=== PATIENT | male | born 1955 | race African-American/Black ===

== ENCOUNTER 2020-02-13 23:17 | Inpatient (IN) | payer MEDICAID ==
[~2020-02-13] VITALS: Ht 180.3 cm; Wt 106.6 kg
[2020-02-14 00:59] LABS: BASOPHILS % 0.9 % (0.0-2.0); EOSINOPHILS % 0.7 % (0.0-5.0); HEMATOCRIT. 25.4 % (42.0-52.0); HEMOGLOBIN. 8.6 g/dL (14.0-18.0); MEAN CORPUSCULAR HEMOGLOBIN 23.1 pg (28.0-32.0); MEAN CORPUSCULAR VOLUME 68.5 fL (80.0-94.0); MEAN PLATELET VOLUME 7.5 fl (7.4-10.4); MONOCYTES % 9.8 % (2.0-8.0); NEUTROPHILS % 79.6 % (40.0-76.0); PLATELET 320 x1000/uL (130-400); RED CELL DISTRIBUTION WIDTH 15.2 % (11.6-14.6)
[2020-02-14 01:07] LABS: PROTHROMBIN TIME 10.7 sec (9.6-11.0)
[2020-02-14 01:17] LABS: CHLORIDE 105 mEq/L (98-107)
[2020-02-14] MEDS ORDERED: HYDRALAZINE 20MG/ML VIAL IV SCH (09:00)
[2020-02-14] MEDS ORDERED: SODIUM BICARBONATE 8.4% 1 MEQ/ML 50ML SYR IV SCH (09:15)
[2020-02-14] MEDS ORDERED: FUROSEMIDE 100MG/10ML VIAL IVP SCH (09:15)
[2020-02-14] MEDS ORDERED: SODIUM POLYSTYRENE SULFONATE 15 G/60 ML BOT PO SCH (09:15)
[2020-02-14] MEDS ORDERED: LIDOCAINE HCL 1% 20ML VIAL (Pyxis) INJ ONE (09:38)
[2020-02-14] MEDS ORDERED: HEPARIN 1000 UNITS/ML 10ML ONE (09:39)
[2020-02-14] MEDS ORDERED: CLONIDINE 0.1MG TABLET PO PRN (10:15)
[2020-02-14] MEDS ORDERED: IPRATROPIUM/ALBUTEROL 0.5-3(2.5)MG/3ML NEB HHN PRN (10:15)
[2020-02-14] MEDS ORDERED: ONDANSETRON HCL 4MG/2ML INJ IV PRN (10:15)
[2020-02-14] MEDS: NIFEDIPINE XL 30MG TAB PO SCH (10:44)
[2020-02-14 11:12] VITALS: BP 151/90
[2020-02-14 12:00] VITALS: BP_SYST 150; BP_SYST 151; BP_DIAS 90; BP_DIAS 92
[2020-02-14 12:13] LABS: TOTAL IRON BINDING CAPACITY 218 ug/dL (250-450)
[2020-02-14] MEDS ORDERED: HYDR-4135 PO (12:44)
[2020-02-14] MEDS ORDERED: NIFE-33 PO (12:44)
[2020-02-14] MEDS ORDERED: LISI-604 PO (12:44)
[2020-02-14] MEDS ORDERED: ASPI-1497 PO (12:44)
[2020-02-14] MEDS ORDERED: FERR325T6 PO (12:44)
[2020-02-14 16:00] VITALS: BP 150/92
[2020-02-14] MEDS: IRON SUCROSE COMPLEX 100 MG/5 ML ML IV SCH (18:19)
[2020-02-14 20:00] VITALS: BP 128/75
[2020-02-14] MEDS: IPRATROPIUM/ALBUTEROL 0.5-3(2.5)MG/3ML NEB HHN SCH (20:30)
[2020-02-14] MEDS ORDERED: EPOETIN ALFA 10000UNITS/ML VIAL SUBCUT ONE (21:00)
[2020-02-15] VITALS (7 sets, daily range): BP systolic 133–151; BP diastolic 80–94
[2020-02-15] MEDS: IPRATROPIUM/ALBUTEROL 0.5-3(2.5)MG/3ML NEB HHN SCH ×4 (01:45→22:00)
[2020-02-15 07:16] LABS: BASOPHILS % 0.9 % (0.0-2.0); EOSINOPHILS % 1.1 % (0.0-5.0); HEMATOCRIT. 29.4 % (42.0-52.0); HEMOGLOBIN. 9.5 g/dL (14.0-18.0); LYMPHOCYTES % 13.8 % (20.0-50.0); MEAN CORPUSCULAR HEMOGLOBIN 22.2 pg (28.0-32.0); MEAN CORPUSCULAR VOLUME 68.6 fL (80.0-94.0); MEAN PLATELET VOLUME 7.9 fl (7.4-10.4); MONOCYTES % 14.3 % (2.0-8.0); NEUTROPHILS % 69.9 % (40.0-76.0); PLATELET 376 x1000/uL (130-400); RED BLOOD CELL COUNT 4.29 mill/uL (4.7-6.1); RED CELL DISTRIBUTION WIDTH 15.1 % (11.6-14.6)
[2020-02-15 07:43] LABS: PHOSPHORUS 5.4 mg/dL (2.5-4.9)
[2020-02-15] MEDS: NIFEDIPINE XL 30MG TAB PO SCH (08:15)
[2020-02-15] MEDS: ACETAMINOPHEN 325MG TABLET PO PRN (16:33)
[2020-02-15] MEDS: IRON SUCROSE COMPLEX 100 MG/5 ML ML IV SCH (18:43)
[2020-02-16] MEDS: ACETAMINOPHEN 325MG TABLET PO PRN ×3 (00:07→14:47)
[2020-02-16] MEDS: IPRATROPIUM/ALBUTEROL 0.5-3(2.5)MG/3ML NEB HHN SCH ×5 (01:50→21:06)
[2020-02-16 04:39] VITALS: BP 134/88
[2020-02-16 05:58] LABS: CHLORIDE 107 mEq/L (98-107)
[2020-02-16 06:08] LABS: PHOSPHORUS 3.7 mg/dL (2.5-4.9)
[2020-02-16 06:32] LABS: BASOPHILS % 0.4 % (0.0-2.0); EOSINOPHILS % 1.4 % (0.0-5.0); HEMATOCRIT. 26.8 % (42.0-52.0); HEMOGLOBIN. 8.7 g/dL (14.0-18.0); LYMPHOCYTES % 10.6 % (20.0-50.0); MEAN CORPUSCULAR HEMOGLOBIN 22.3 pg (28.0-32.0); MEAN CORPUSCULAR VOLUME 68.9 fL (80.0-94.0); MEAN PLATELET VOLUME 7.6 fl (7.4-10.4); MONOCYTES % 13.1 % (2.0-8.0); NEUTROPHILS % 74.5 % (40.0-76.0); PLATELET 354 x1000/uL (130-400); RED BLOOD CELL COUNT 3.89 mill/uL (4.7-6.1); RED CELL DISTRIBUTION WIDTH 15.2 % (11.6-14.6)
[2020-02-16 08:00] VITALS: BP 161/105
[2020-02-16] MEDS: NIFEDIPINE XL 30MG TAB PO SCH (10:17)
[2020-02-16 12:00] VITALS: BP 107/70
[2020-02-16 14:18] LABS: PLATELET ESTIMATE NORMAL
[2020-02-16] MEDS: CEFTRIAXONE 1 G PREMIX 50 ML IV SCH (14:47)
[2020-02-16] MEDS ORDERED: VANCOMYCIN 2,000 MG in DEXT 5% WATER 500 ML IV NR (16:00)
[2020-02-16 18:31] LABS: CLARITY URINE CLEAR (CLEAR); COLOR URINE YELLOW (YELLOW); KETONES URINE NEGATIVE (NEGATIVE); LEUKOCYTE ESTERASE URINE TRACE (NEGATIVE); NITRITE URINE NEGATIVE (NEGATIVE); OCCULT BLOOD URINE 3+ (NEGATIVE); PROTEIN URINE 2+ (NEGATIVE); SPECIFIC GRAVITY URINE 1.004 (1.005-1.030); UROBILINOGEN URINE 0.2 E.U./dL (0.2-1.0)
[2020-02-16] MEDS ORDERED: IRON SUCROSE COMPLEX 100 MG/5 ML ML IV SCH (19:45)
[2020-02-16] MEDS: IRON SUCROSE COMPLEX 100 MG/5 ML ML IV SCH (19:52)
[2020-02-16 20:00] VITALS: BP 138/72
[2020-02-17] VITALS: BP 151/99
[2020-02-17 04:00] VITALS: BP 143/89
[2020-02-17] MEDS: VANCOMYCIN 1 G PREMIX 200 ML IV SCH ×2 (06:08→18:16)
[2020-02-17 08:00] VITALS: BP 165/92
[2020-02-17] MEDS: NIFEDIPINE XL 30MG TAB PO SCH (08:09)
[2020-02-17 08:24] LABS: BASOPHILS % 1.5 % (0.0-2.0); EOSINOPHILS % 2.8 % (0.0-5.0); HEMATOCRIT. 28.3 % (42.0-52.0); HEMOGLOBIN. 9.1 g/dL (14.0-18.0); LYMPHOCYTES % 10.8 % (20.0-50.0); MEAN CORPUSCULAR HEMOGLOBIN 22.3 pg (28.0-32.0); MEAN CORPUSCULAR VOLUME 69.5 fL (80.0-94.0); MEAN PLATELET VOLUME 7.5 fl (7.4-10.4); MONOCYTES % 11.6 % (2.0-8.0); NEUTROPHILS % 73.3 % (40.0-76.0); PLATELET 389 x1000/uL (130-400); RED BLOOD CELL COUNT 4.07 mill/uL (4.7-6.1); RED CELL DISTRIBUTION WIDTH 15.4 % (11.6-14.6)
[2020-02-17 08:37] LABS: CHLORIDE 106 mEq/L (98-107)
[2020-02-17 08:47] LABS: PHOSPHORUS 3.7 mg/dL (2.5-4.9)
[2020-02-17 11:39] VITALS: BP 134/84
[2020-02-17] MEDS: ALBUTEROL 6.7GM HFA INHALER ORI SCH ×2 (12:00→18:17)
[2020-02-17 16:00] VITALS: BP 138/81
[2020-02-17] MEDS: CEFTRIAXONE 1 G PREMIX 50 ML IV SCH (18:16)
[2020-02-17 20:00] VITALS: BP 133/84
[2020-02-18] VITALS: BP 119/81
[2020-02-18 05:00] VITALS: BP 130/84
[2020-02-18] MEDS: VANCOMYCIN 1 G PREMIX 200 ML IV SCH (05:15)
[2020-02-18] MEDS: ALBUTEROL 6.7GM HFA INHALER ORI SCH (05:54)
[2020-02-18 07:52] VITALS: BP 135/93
[2020-02-18] MEDS: NIFEDIPINE XL 30MG TAB PO SCH (08:11)
[2020-02-18] MEDS ORDERED: LEVO500T2 MT (10:29)
[2020-02-18 11:44] VITALS: BP 126/83
[2020-02-18 13:26] VITALS: BP 126/83
== END 2020-02-18 15:55 | disposition home or self-care (01) | DRG 720 ==
LOC: ER 23:17 → MICUSO 02-14 01:59 → EDBEDREQ 02-14 02:09 → EDBEDREQTM 02-14 02:09 → EDBEDREQDT 02-14 02:09 → 6WST 02-14 11:44 → 7WST 02-17 00:02 → 6WST 02-18 04:42
PROVIDERS: ADMIT Internal Medicine; ATTEND Internal Medicine
PROC: 05HY33Z Insertion of Infusion Device into Upper Vein, Percutaneous Approach (ICD-10-PCS; principal; 2020-02-14)
PROC: B54MZZA Ultrasonography of Right Upper Extremity Veins, Guidance (ICD-10-PCS; 2020-02-14)
PROC: 5A1D70Z Performance of Urinary Filtration, Intermittent, Less than 6 Hours Per Day (ICD-10-PCS; 2020-02-14)
DX: A41.9 Sepsis, unspecified organism (principal); J96.01 Acute respiratory failure with hypoxia; I13.2 Hypertensive heart and chronic kidney disease with heart failure and with stage 5 chronic kidney disease, or end stage renal disease; J81.1 Chronic pulmonary edema; N17.9 Acute kidney failure, unspecified; E44.0 Moderate protein-calorie malnutrition; E87.2 Acidosis; N18.6 End stage renal disease; E11.22 Type 2 diabetes mellitus with diabetic chronic kidney disease; D64.9 Anemia, unspecified; E66.9 Obesity, unspecified; E78.5 Hyperlipidemia, unspecified; E87.5 Hyperkalemia; I16.0 Hypertensive urgency; I50.32 Chronic diastolic (congestive) heart failure; Z99.2 Dependence on renal dialysis; N40.1 Benign prostatic hyperplasia with lower urinary tract symptoms; N13.8 Other obstructive and reflux uropathy; Z20.828 Contact with and (suspected) exposure to other viral communicable diseases; Z68.32 Body mass index [BMI] 32.0-32.9, adult; Z79.899 Other long term (current) drug therapy; Z79.82 Long term (current) use of aspirin; Z71.3 Dietary counseling and surveillance
CPT/HCPCS: 36415; 71045; 76770; 76937; 80048; 80053; 80202; 81003; 83540; 83550; 83605; 83735; 83880; 84100; 84145; 84153; 84484; 85025; 93005; 97116; 97162; 99291; C1752; J0360; J0696; J0885; J1644; J1940; J3370; J3490; J7060; G0103; U0003-CS

== ENCOUNTER 2020-05-07 21:27 | Inpatient (IN) | payer MEDICAID ==
[~2020-05-07] VITALS: Ht 180.3 cm; Wt 85.7 kg
[~2020-05-07 21:27] MED LIST: FERR325T6 PO; LEVO500T2 MT; NIFE-33 PO
[2020-05-07] MEDS ORDERED: CLOPIDOGREL 75MG TABLET PO ONE (22:45)
[2020-05-07 23:03] LABS: HEMATOCRIT. 31.9 % (42.0-52.0); HEMOGLOBIN. 9.9 g/dL (14.0-18.0); MEAN CORPUSCULAR HEMOGLOBIN 21.6 pg (28.0-32.0); MEAN CORPUSCULAR VOLUME 69.7 fL (80.0-94.0); MEAN PLATELET VOLUME 7.5 fl (7.4-10.4); PLATELET 455 x1000/uL (130-400); RED BLOOD CELL COUNT 4.58 mill/uL (4.7-6.1); RED CELL DISTRIBUTION WIDTH 21.9 % (11.6-14.6)
[2020-05-07 23:11] LABS: CHLORIDE 108 mEq/L (98-107)
[2020-05-07 23:15] LABS: PARTIAL THROMBOPLASTIN TIME 21.1 sec (23.4-31.0); PROTHROMBIN TIME 10.2 sec (9.6-11.0)
[2020-05-07 23:18] LABS: PLATELET ESTIMATE NORMAL
[2020-05-07 23:36] LABS: CLARITY URINE CLEAR (CLEAR); COLOR URINE YELLOW (YELLOW); KETONES URINE NEGATIVE (NEGATIVE); LEUKOCYTE ESTERASE URINE TRACE (NEGATIVE); NITRITE URINE NEGATIVE (NEGATIVE); OCCULT BLOOD URINE NEGATIVE (NEGATIVE); PROTEIN URINE NEGATIVE (NEGATIVE); SPECIFIC GRAVITY URINE 1.012 (1.005-1.030)
[2020-05-08] MEDS ORDERED: AZITHROMYCIN 500 MG in DEXT 5% WATER 250 ML IV ONE ×2
[2020-05-08] MEDS ORDERED: CEFTRIAXONE 1 G PREMIX 50 ML IV ONE
[2020-05-08] MEDS ORDERED: IOHEXOL-350 100 ML BOTTLE ONE (01:37)
[2020-05-08 08:00] VITALS: BP 125/69
[2020-05-08 09:00] VITALS: BP 125/69
[2020-05-08] MEDS ORDERED: FLUC200T51 PO (09:35)
[2020-05-08] MEDS ORDERED: TAMS-11 PO (09:35)
[2020-05-08] MEDS ORDERED: CEPH-569 PO (09:35)
[2020-05-08] MEDS ORDERED: BICA50TA7 PO (09:35)
[2020-05-08] MEDS ORDERED: NITR-87 PO (09:35)
[2020-05-08] MEDS ORDERED: PROT40 PO (09:35)
[2020-05-08 10:00] VITALS: BP 125/69
[2020-05-08] MEDS ORDERED: ACETAMINOPHEN 325MG TABLET PO PRN (10:15)
[2020-05-08] MEDS ORDERED: ONDANSETRON HCL 4MG/2ML INJ IV PRN (10:15)
[2020-05-08 12:00] VITALS: BP 116/80
[2020-05-08 16:00] VITALS: BP 124/89
[2020-05-08] MEDS ORDERED: ALBUTEROL 6.7GM HFA INHALER ORI SCH (18:00)
[2020-05-08] MEDS: TAMSULOSIN HCL 0.4MG SR CAPSULE PO SCH (18:20)
[2020-05-08 20:00] VITALS: BP 118/87
[2020-05-08] MEDS: PANTOPRAZOLE 40MG DR TABLET PO SCH (20:56)
[2020-05-09] VITALS (7 sets, daily range): BP systolic 108–134; BP diastolic 72–92
[2020-05-09] MEDS: PANTOPRAZOLE 40MG DR TABLET PO SCH ×2 (06:26→20:58)
[2020-05-09] MEDS ORDERED: GADOBENATE DIMEGLUMINE 529 MG/ML 10ML IV ONE (08:43)
[2020-05-09] MEDS ORDERED: CLOPIDOGREL 75MG TABLET PO SCH (09:00)
[2020-05-09] MEDS ORDERED: ASPIRIN 81MG TABLET PO SCH (09:00)
[2020-05-09] MEDS: TAMSULOSIN HCL 0.4MG SR CAPSULE PO SCH (09:12)
[2020-05-09] MEDS ORDERED: IPRATROPIUM/ALBUTEROL 0.5-3(2.5)MG/3ML NEB HHN PRN (14:30)
[2020-05-09 16:31] LABS: CHLORIDE 105 mEq/L (98-107)
[2020-05-09 16:48] LABS: BASOPHILS % 0.7 % (0.0-2.0); EOSINOPHILS % 3.1 % (0.0-5.0); HEMATOCRIT. 30.2 % (42.0-52.0); HEMOGLOBIN. 9.6 g/dL (14.0-18.0); LYMPHOCYTES % 43.2 % (20.0-50.0); MEAN CORPUSCULAR HEMOGLOBIN 22.1 pg (28.0-32.0); MEAN CORPUSCULAR VOLUME 69.2 fL (80.0-94.0); MEAN PLATELET VOLUME 7.4 fl (7.4-10.4); MONOCYTES % 8.8 % (2.0-8.0); NEUTROPHILS % 44.2 % (40.0-76.0); PLATELET 421 x1000/uL (130-400); RED BLOOD CELL COUNT 4.36 mill/uL (4.7-6.1); RED CELL DISTRIBUTION WIDTH 21.1 % (11.6-14.6)
[2020-05-10] VITALS: BP 116/79
[2020-05-10 04:00] VITALS: BP 120/83
[2020-05-10] MEDS: PANTOPRAZOLE 40MG DR TABLET PO SCH ×2 (05:51→21:06)
[2020-05-10 08:00] VITALS: BP 127/92
[2020-05-10] MEDS: TAMSULOSIN HCL 0.4MG SR CAPSULE PO SCH (09:14)
[2020-05-10 12:00] VITALS: BP 119/83
[2020-05-10 16:02] VITALS: BP_SYST 116; BP_SYST 121; BP_DIAS 82; BP_DIAS 87
[2020-05-10 20:00] VITALS: BP 153/98
[2020-05-11] VITALS: BP 132/74
[2020-05-11 04:00] VITALS: BP 95/58
[2020-05-11] MEDS: PANTOPRAZOLE 40MG DR TABLET PO SCH ×2 (06:21→21:50)
[2020-05-11 08:00] VITALS: BP 100/69
[2020-05-11] MEDS: TAMSULOSIN HCL 0.4MG SR CAPSULE PO SCH (08:33)
[2020-05-11 12:00] VITALS: BP 108/62
[2020-05-11] MEDS ORDERED: CEFTRIAXONE 2 G PREMIX 50 ML IV SCH (13:00)
[2020-05-11] MEDS: CEFTRIAXONE 2 G in DEXTROSE 5% WATER 50 ML IV SCH (15:25)
[2020-05-11 16:00] VITALS: BP 117/81
[2020-05-11 20:00] VITALS: BP 115/84
[2020-05-12] VITALS: BP 147/82
[2020-05-12 04:00] VITALS: BP 116/83
[2020-05-12] MEDS: PANTOPRAZOLE 40MG DR TABLET PO SCH (06:56)
[2020-05-12 07:59] VITALS: BP 136/73
[2020-05-12] MEDS: TAMSULOSIN HCL 0.4MG SR CAPSULE PO SCH (08:36)
[2020-05-12 12:00] VITALS: BP 103/80
[2020-05-12] MEDS: CEFTRIAXONE 2 G in DEXTROSE 5% WATER 50 ML IV SCH (13:57)
[2020-05-12 14:03] VITALS: BP 103/80
== END 2020-05-12 15:45 | disposition home or self-care (01) | DRG 133 ==
LOC: ER 21:27 → 7WST 05-08 00:41 → ENRESERV 05-08 07:42 → 5WST 05-08 22:52
PROVIDERS: ADMIT Internal Medicine; ATTEND Internal Medicine
PROC: 05HY33Z Insertion of Infusion Device into Upper Vein, Percutaneous Approach (ICD-10-PCS; principal; 2020-05-11)
PROC: B54NZZA Ultrasonography of Left Upper Extremity Veins, Guidance (ICD-10-PCS; 2020-05-11)
DX: J96.00 Acute respiratory failure, unspecified whether with hypoxia or hypercapnia (principal); M94.0 Chondrocostal junction syndrome [Tietze]; M46.44 Discitis, unspecified, thoracic region; E44.1 Mild protein-calorie malnutrition; I11.0 Hypertensive heart disease with heart failure; E87.8 Other disorders of electrolyte and fluid balance, not elsewhere classified; J98.11 Atelectasis; I25.10 Atherosclerotic heart disease of native coronary artery without angina pectoris; I50.32 Chronic diastolic (congestive) heart failure; D64.9 Anemia, unspecified; E78.5 Hyperlipidemia, unspecified; M46.24 Osteomyelitis of vertebra, thoracic region; N40.1 Benign prostatic hyperplasia with lower urinary tract symptoms; R33.8 Other retention of urine; N13.8 Other obstructive and reflux uropathy; Z85.46 Personal history of malignant neoplasm of prostate; Z68.26 Body mass index [BMI] 26.0-26.9, adult; Z88.6 Allergy status to analgesic agent; I25.2 Old myocardial infarction; Z88.8 Allergy status to other drugs, medicaments and biological substances; Z79.2 Long term (current) use of antibiotics; Z79.899 Other long term (current) drug therapy; Z03.818 Encounter for observation for suspected exposure to other biological agents ruled out; R91.8 Other nonspecific abnormal finding of lung field; J81.1 Chronic pulmonary edema
CPT/HCPCS: 36415; 71045; 71275; 72157; 76937; 80048; 80053; 81003; 83605; 83880; 84145; 84484; 85025; 85379; 85651; 86141; 86850; 86900; 87077; 87186; 87635; 93005; 97161; 99285; A9577; C1725; J0456; J0696; J7060; Q9967

== ENCOUNTER 2020-11-21 14:13 | Inpatient (IN) | payer MEDICAID ==
[~2020-11-21] VITALS: Ht 175.3 cm; Wt 71.3 kg
[~2020-11-21 14:13] MED LIST changes: +BICA50TA7 PO; -FERR325T6 PO; +FLUC200T51 PO; -LEVO500T2 MT; +PROT40 PO; +TAMS-11 PO
[2020-11-21] MEDS ORDERED: ACETAMINOPHEN 325MG TABLET PO STA (14:21)
[2020-11-21] MEDS ORDERED: PIPERACILLIN/TAZ 3.375G PREMIX 50 ML IV ONE (14:30)
[2020-11-21] MEDS ORDERED: SODIUM CHLORIDE 0.9% 1000ML BAG (SEPSIS BOLUS) IV ONE (14:30)
[2020-11-21 15:12] LABS: CHLORIDE 104 mEq/L (98-107)
[2020-11-21 15:18] LABS: INR 1.2; PROTHROMBIN TIME 12.8 sec (9.6-11.0)
[2020-11-21] MEDS ORDERED: VANCOMYCIN 1 G PREMIX 200 ML IV STA (15:19)
[2020-11-21 15:30] LABS: HEMATOCRIT. 25.6 % (42.0-52.0); HEMOGLOBIN. 8.6 g/dL (14.0-18.0); MEAN CORPUSCULAR HEMOGLOBIN 23.4 pg (28.0-32.0); MEAN CORPUSCULAR VOLUME 70.2 fL (80.0-94.0); MEAN PLATELET VOLUME 8.5 fl (7.4-10.4); PLATELET 101 x1000/uL (130-400); RED BLOOD CELL COUNT 3.65 mill/uL (4.7-6.1)
[2020-11-21] MEDS ORDERED: POTASSIUM CHLORIDE INJ 40 MEQ in DEXT 5% WATER 250 ML IV ONE (15:30)
[2020-11-21 16:02] LABS: CLARITY URINE CLOUDY (CLEAR); COLOR URINE YELLOW (YELLOW); KETONES URINE NEGATIVE (NEGATIVE); LEUKOCYTE ESTERASE URINE 3+ (NEGATIVE); NITRITE URINE NEGATIVE (NEGATIVE); OCCULT BLOOD URINE 3+ (NEGATIVE); PROTEIN URINE 2+ (NEGATIVE); SPECIFIC GRAVITY URINE 1.007 (1.005-1.030); UROBILINOGEN URINE 0.2 E.U./dL (0.2-1.0)
[2020-11-21 16:32] LABS: NUCLEATED RED BLOOD CELLS 3 /100 WBC; PLATELET ESTIMATE DECREASED
[2020-11-21] MEDS ORDERED: ACETAMINOPHEN 325MG TABLET PO PRN (19:15)
[2020-11-21] MEDS ORDERED: ONDANSETRON HCL 4MG/2ML INJ IV PRN (19:15)
[2020-11-21] MEDS ORDERED: CLONIDINE 0.1MG TABLET PO PRN (19:15)
[2020-11-21] MEDS ORDERED: MORPHINE SULFATE 2 MG/ML CPJ (NOT FOR IM USE) IV PRN (19:15)
[2020-11-21] MEDS ORDERED: DIPHENHYDRAMINE 50MG/ML VIAL IV PRN (19:15)
[2020-11-21] MEDS ORDERED: IPRATROPIUM/ALBUTEROL 0.5-3(2.5)MG/3ML NEB HHN PRN (19:15)
[2020-11-22] VITALS (7 sets, daily range): BP systolic 120–141; BP diastolic 75–93
[2020-11-22] MEDS ORDERED: PIPERACILLIN/TAZ 3.375G PREMIX 50 ML IV SCH
[2020-11-22] MEDS ORDERED: POTASSIUM CHLORIDE 20MEQ TABLET SR PO SCH ×3 (01:00→10:00)
[2020-11-22 04:54] LABS: CHLORIDE 109 mEq/L (98-107)
[2020-11-22 05:04] LABS: LDL CHOLESTEROL 16 mg/dL (5-100)
[2020-11-22 05:06] LABS: HDL CHOLESTEROL 35 mg/dL (40-59)
[2020-11-22 05:47] LABS: HEMATOCRIT. 27.5 % (42.0-52.0); HEMOGLOBIN. 9.2 g/dL (14.0-18.0); MEAN CORPUSCULAR HEMOGLOBIN 23.6 pg (28.0-32.0); MEAN PLATELET VOLUME 9.1 fl (7.4-10.4); PLATELET 104 x1000/uL (130-400); RED BLOOD CELL COUNT 3.87 mill/uL (4.7-6.1); RED CELL DISTRIBUTION WIDTH 20.9 % (11.6-14.6)
[2020-11-22] MEDS: NIFEDIPINE XL 30MG TAB PO SCH (12:52)
[2020-11-22] MEDS ORDERED: VANCOMYCIN 1 G PREMIX 200 ML IV SCH (15:00)
[2020-11-22] MEDS: PIPERACILLIN/TAZOBACTAM 3.375 G in DEXT 5% WATER 100 ML IV SCH ×3 (15:26→23:43)
[2020-11-22] MEDS: VANCOMYCIN 1 G PREMIX 200 ML IV NR ×2 (15:27→15:39)
[2020-11-22] MEDS: BICALUTAMIDE 50 MG TABLET PO SCH (16:46)
[2020-11-22] MEDS: POTASSIUM CHLORIDE 20MEQ TABLET SR PO SCH (20:34)
[2020-11-22 20:36] LABS: NUCLEATED RED BLOOD CELLS 1 /100 WBC; PLATELET ESTIMATE SLIGHTLY DECREASED
[2020-11-23] VITALS: BP 125/96
[2020-11-23 04:00] VITALS: BP 135/90
[2020-11-23] MEDS: PIPERACILLIN/TAZOBACTAM 3.375 G in DEXT 5% WATER 100 ML IV SCH ×2 (06:00→14:52)
[2020-11-23] MEDS: PANTOPRAZOLE 40MG DR TABLET PO SCH (06:00)
[2020-11-23 07:12] LABS: HEMATOCRIT. 22.4 % (42.0-52.0); HEMOGLOBIN. 7.7 g/dL (14.0-18.0); MEAN CORPUSCULAR VOLUME 69.6 fL (80.0-94.0); MEAN PLATELET VOLUME 8.6 fl (7.4-10.4); RED BLOOD CELL COUNT 3.22 mill/uL (4.7-6.1); RED CELL DISTRIBUTION WIDTH 21.5 % (11.6-14.6)
[2020-11-23 07:19] LABS: PHOSPHORUS 2.5 mg/dL (2.5-4.9)
[2020-11-23 07:27] LABS: HEPATITIS B SURFACE ANTIGEN NEGATIVE
[2020-11-23 07:54] LABS: FERRITIN 2195 ng/mL (22-322)
[2020-11-23 07:56] LABS: HEPATITIS A AB IGM NEGATIVE (NEGATIVE)
[2020-11-23 08:00] VITALS: BP 140/94
[2020-11-23] MEDS ORDERED: MAGNESIUM 2 G PREMIX 50 ML IV SCH (11:00)
[2020-11-23] MEDS: POTASSIUM CHLORIDE 20MEQ TABLET SR PO SCH ×2 (11:28→20:20)
[2020-11-23] MEDS: BICALUTAMIDE 50 MG TABLET PO SCH (11:28)
[2020-11-23] MEDS: NIFEDIPINE XL 30MG TAB PO SCH (11:31)
[2020-11-23 12:00] VITALS: BP 132/91
[2020-11-23 12:52] LABS: PLATELET 89 x1000/uL (130-400)
[2020-11-23 12:57] LABS: PLATELET ESTIMATE DECREASED
[2020-11-23 14:13] LABS: VITAMIN B12 SERUM 627 pg/mL (211-911)
[2020-11-23 16:00] VITALS: BP 120/84
[2020-11-23] MEDS ORDERED: VANCOMYCIN 750 MG PREMIX 150 ML IV SCH (17:00)
[2020-11-23 20:00] VITALS: BP 115/77
[2020-11-23] MEDS: AMPICILLIN 2,000 MG in SODIUM CHLORIDE 0.9% 100 ML IV SCH (20:20)
[2020-11-24] VITALS: BP 112/79
[2020-11-24] MEDS: AMPICILLIN 2,000 MG in SODIUM CHLORIDE 0.9% 100 ML IV SCH ×3 (01:35→17:32)
[2020-11-24 04:00] VITALS: BP 147/96
[2020-11-24 06:09] LABS: HEMATOCRIT. 25.1 % (42.0-52.0); HEMOGLOBIN. 8.3 g/dL (14.0-18.0); MEAN CORPUSCULAR HEMOGLOBIN 23.5 pg (28.0-32.0); MEAN CORPUSCULAR VOLUME 71.2 fL (80.0-94.0); RED BLOOD CELL COUNT 3.53 mill/uL (4.7-6.1); RED CELL DISTRIBUTION WIDTH 22.1 % (11.6-14.6)
[2020-11-24] MEDS: PANTOPRAZOLE 40MG DR TABLET PO SCH (06:14)
[2020-11-24 07:26] LABS: PHOSPHORUS 2.2 mg/dL (2.5-4.9)
[2020-11-24 08:00] VITALS: BP 136/88
[2020-11-24] MEDS: POTASSIUM CHLORIDE 20MEQ TABLET SR PO SCH (10:00)
[2020-11-24] MEDS: NIFEDIPINE XL 30MG TAB PO SCH (10:00)
[2020-11-24] MEDS ORDERED: POTASSIUM PHOS,M-BASIC-D-BASIC 15 MMOL in DEXT 5% WATER 245 ML IV SCH (10:00)
[2020-11-24] MEDS: BICALUTAMIDE 50 MG TABLET PO SCH (10:00)
[2020-11-24 12:00] VITALS: BP 138/93
[2020-11-24 12:13] LABS: NUCLEATED RED BLOOD CELLS 3 /100 WBC
[2020-11-24 12:15] LABS: PLATELET 85 x1000/uL (130-400); PLATELET ESTIMATE DECREASED
[2020-11-24 12:16] LABS: MEAN PLATELET VOLUME 8.7 fl (7.4-10.4)
[2020-11-24 16:00] VITALS: BP 143/95
[2020-11-24 20:00] VITALS: BP 137/85
[2020-11-25] VITALS: BP 127/84
[2020-11-25] MEDS: AMPICILLIN 2,000 MG in SODIUM CHLORIDE 0.9% 100 ML IV SCH ×3 (01:19→17:45)
[2020-11-25 04:00] VITALS: BP 134/82
[2020-11-25 06:06] LABS: HEMATOCRIT. 22.7 % (42.0-52.0); HEMOGLOBIN. 7.6 g/dL (14.0-18.0); MEAN CORPUSCULAR HEMOGLOBIN 23.7 pg (28.0-32.0); MEAN CORPUSCULAR VOLUME 70.7 fL (80.0-94.0); RED BLOOD CELL COUNT 3.22 mill/uL (4.7-6.1); RED CELL DISTRIBUTION WIDTH 21.7 % (11.6-14.6)
[2020-11-25] MEDS: PANTOPRAZOLE 40MG DR TABLET PO SCH (06:11)
[2020-11-25 06:33] LABS: PHOSPHORUS 3.2 mg/dL (2.5-4.9)
[2020-11-25 08:00] VITALS: BP 164/98
[2020-11-25] MEDS: POTASSIUM CHLORIDE 20MEQ TABLET SR PO SCH (09:28)
[2020-11-25] MEDS: NIFEDIPINE XL 30MG TAB PO SCH (09:28)
[2020-11-25 11:48] LABS: PLATELET ESTIMATE DECREASED
[2020-11-25 11:53] LABS: MEAN PLATELET VOLUME 8.5 fl (7.4-10.4); PLATELET 62 x1000/uL (130-400)
[2020-11-25 12:00] VITALS: BP 131/87
[2020-11-25] MEDS: BICALUTAMIDE 50 MG TABLET PO SCH (13:20)
[2020-11-25 16:00] VITALS: BP 135/94
[2020-11-25] MEDS: MICAFUNGIN 150 MG in SODIUM CHLORIDE 0.9% 100 ML IV SCH (16:10)
[2020-11-25 20:00] VITALS: BP 145/95
[2020-11-26] VITALS: BP 160/95
[2020-11-26] MEDS: AMPICILLIN 2,000 MG in SODIUM CHLORIDE 0.9% 100 ML IV SCH ×3 (01:47→17:20)
[2020-11-26 04:00] VITALS: BP 140/95
[2020-11-26 05:32] LABS: PHOSPHORUS 3.6 mg/dL (2.5-4.9)
[2020-11-26 05:54] LABS: HEMATOCRIT. 22.5 % (42.0-52.0); HEMOGLOBIN. 7.4 g/dL (14.0-18.0); MEAN CORPUSCULAR HEMOGLOBIN 23.2 pg (28.0-32.0); MEAN CORPUSCULAR VOLUME 70.9 fL (80.0-94.0); MEAN PLATELET VOLUME 8.7 fl (7.4-10.4); PLATELET 57 x1000/uL (130-400); RED BLOOD CELL COUNT 3.17 mill/uL (4.7-6.1); RED CELL DISTRIBUTION WIDTH 22.9 % (11.6-14.6)
[2020-11-26] MEDS: PANTOPRAZOLE 40MG DR TABLET PO SCH (06:13)
[2020-11-26 08:00] VITALS: BP 143/95
[2020-11-26] MEDS: POTASSIUM CHLORIDE 20MEQ TABLET SR PO SCH (08:56)
[2020-11-26] MEDS: BICALUTAMIDE 50 MG TABLET PO SCH (08:56)
[2020-11-26] MEDS: NIFEDIPINE XL 30MG TAB PO SCH (08:59)
[2020-11-26 12:00] VITALS: BP 110/68
[2020-11-26] MEDS ORDERED: MAGNESIUM 2 G PREMIX 50 ML IV NR (12:30)
[2020-11-26 13:59] LABS: NUCLEATED RED BLOOD CELLS 1 /100 WBC; PLATELET ESTIMATE MARKEDLY DECREASED
[2020-11-26] MEDS: MICAFUNGIN 150 MG in SODIUM CHLORIDE 0.9% 100 ML IV SCH (14:58)
[2020-11-26 16:00] VITALS: BP 128/90
[2020-11-26 19:39] LABS: HEMATOCRIT 22.4 % (42.0-52.0); HEMOGLOBIN 7.3 g/dL (14.0-18.0)
[2020-11-26 20:00] VITALS: BP 140/95
[2020-11-27] VITALS (9 sets, daily range): BP systolic 140–155; BP diastolic 88–107
[2020-11-27] MEDS: AMPICILLIN 2,000 MG in SODIUM CHLORIDE 0.9% 100 ML IV SCH ×2 (01:25→11:01)
[2020-11-27] MEDS: PANTOPRAZOLE 40MG DR TABLET PO SCH (05:49)
[2020-11-27 06:15] LABS: HEMATOCRIT. 23.2 % (42.0-52.0); HEMOGLOBIN. 7.6 g/dL (14.0-18.0); MEAN CORPUSCULAR HEMOGLOBIN 23.6 pg (28.0-32.0); MEAN CORPUSCULAR VOLUME 71.8 fL (80.0-94.0); MEAN PLATELET VOLUME 8.8 fl (7.4-10.4); RED BLOOD CELL COUNT 3.24 mill/uL (4.7-6.1)
[2020-11-27 06:35] LABS: CHLORIDE 115 mEq/L (98-107)
[2020-11-27 06:58] LABS: PHOSPHORUS 3.5 mg/dL (2.5-4.9)
[2020-11-27 08:15] LABS: PLATELET 42 x1000/uL (130-400)
[2020-11-27] MEDS ORDERED: POTASSIUM CHLORIDE 20MEQ TABLET SR PO SCH (09:00)
[2020-11-27] MEDS: NIFEDIPINE XL 30MG TAB PO SCH (09:30)
[2020-11-27] MEDS: BICALUTAMIDE 50 MG TABLET PO SCH (09:31)
[2020-11-27] MEDS: MICAFUNGIN 150 MG in SODIUM CHLORIDE 0.9% 100 ML IV SCH (14:00)
[2020-11-27 17:48] LABS: PLATELET ESTIMATE MARKEDLY DECREASED
[2020-11-27] MEDS ORDERED: LINE600T14 PO (18:23)
== END 2020-11-27 17:25 | disposition home health service (06) | DRG 720 ==
LOC: ER 14:21 → 5WST 17:31 → EDBEDREQTM 17:34 → EDBEDREQSVC 17:34 → EDBEDREQ 17:34 → ENRESERV 22:05
PROVIDERS: ADMIT Internal Medicine; ATTEND Internal Medicine
PROC: 0TP5X0Z Removal of Drainage Device from Kidney, External Approach (ICD-10-PCS; 2020-11-22)
PROC: 30233N1 Transfusion of Nonautologous Red Blood Cells into Peripheral Vein, Percutaneous Approach (ICD-10-PCS; principal; 2020-11-27)
DX: A41.81 Sepsis due to Enterococcus (principal); N99.522 Malfunction of incontinent external stoma of urinary tract; D50.9 Iron deficiency anemia, unspecified; D69.6 Thrombocytopenia, unspecified; E43 Unspecified severe protein-calorie malnutrition; E87.6 Hypokalemia; E78.5 Hyperlipidemia, unspecified; N18.4 Chronic kidney disease, stage 4 (severe); C61 Malignant neoplasm of prostate; C18.9 Malignant neoplasm of colon, unspecified; N13.8 Other obstructive and reflux uropathy; N17.9 Acute kidney failure, unspecified; B95.5 Unspecified streptococcus as the cause of diseases classified elsewhere; K83.8 Other specified diseases of biliary tract; K74.60 Unspecified cirrhosis of liver; C79.51 Secondary malignant neoplasm of bone; N13.6 Pyonephrosis; K62.5 Hemorrhage of anus and rectum; N40.1 Benign prostatic hyperplasia with lower urinary tract symptoms; R33.8 Other retention of urine; R65.20 Severe sepsis without septic shock; B49 Unspecified mycosis; K76.0 Fatty (change of) liver, not elsewhere classified; R59.0 Localized enlarged lymph nodes; I50.9 Heart failure, unspecified; I13.0 Hypertensive heart and chronic kidney disease with heart failure and stage 1 through stage 4 chronic kidney disease, or unspecified chronic kidney disease; R19.00 Intra-abdominal and pelvic swelling, mass and lump, unspecified site; D63.8 Anemia in other chronic diseases classified elsewhere; Z88.8 Allergy status to other drugs, medicaments and biological substances; I25.2 Old myocardial infarction; Z68.22 Body mass index [BMI] 22.0-22.9, adult; Z90.49 Acquired absence of other specified parts of digestive tract; Z85.46 Personal history of malignant neoplasm of prostate; Z82.49 Family history of ischemic heart disease and other diseases of the circulatory system; Y83.3 Surgical operation with formation of external stoma as the cause of abnormal reaction of the patient, or of later complication, without mention of misadventure at the time of the procedure; Y92.89 Other specified places as the place of occurrence of the external cause
CPT/HCPCS: 36415; 71045; 74176; 76700; 80048; 80053; 80061; 80076; 80202; 81003; 82378; 82607; 82728; 82746; 83540; 83550; 83605; 83735; 83880; 84100; 84132; 84145; 84153; 84443; 84484; 85014; 85018; 85025; 86705; 86709; 86803; 86850; 86900; 86920; 87077; 87106; 87186; 87340; 93005; 93970; 99285; J0290; J2248; J2543; J3370; J3475; J3480; J3490; J7030; J7040; J7050; J7060; P9016; A4315; G0103

== ENCOUNTER 2020-12-12 11:05 | Inpatient (IN) | payer MEDICAID, OTHER ==
[~2020-12-12] VITALS: Ht 175.3 cm; Wt 59.0 kg
[2020-12-12] VITALS (13 sets, daily range): BP systolic 113–156; BP diastolic 72–97
[~2020-12-12 11:05] MED LIST changes: -FLUC200T51 PO; +LINE600T14 PO; -PROT40 PO
[2020-12-12] MEDS ORDERED: PANTOPRAZOLE SODIUM 40 MG/VIAL IV STA (11:21)
[2020-12-12] MEDS ORDERED: OCTREOTIDE ACETATE 50 MCG/ML 1ML IV ONE (11:30)
[2020-12-12] MEDS ORDERED: SODIUM CHLORIDE 0.9% 1,000 ML IV ONE ×2 (11:30→12:45)
[2020-12-12] MEDS ORDERED: PANTOPRAZOLE 80 MG in SODIUM CHLORIDE 0.9% 80 ML IV ONE (11:30)
[2020-12-12] MEDS ORDERED: ACETAMINOPHEN 650MG SUPP PR ONE (11:30)
[2020-12-12] MEDS ORDERED: PIPERACILLIN/TAZOBACTAM 3.375GM/50ML PREMIX IV ONE (11:30)
[2020-12-12 12:00] LABS: MEAN CORPUSCULAR HEMOGLOBIN 25.4 pg (28.0-32.0); MEAN CORPUSCULAR VOLUME 78.6 fL (80.0-94.0); MEAN PLATELET VOLUME 7.2 fl (7.4-10.4); RED BLOOD CELL COUNT 2.22 mill/uL (4.7-6.1); RED CELL DISTRIBUTION WIDTH 24.6 % (11.6-14.6)
[2020-12-12] MEDS ORDERED: PIPERACILLIN/TAZOBACTAM 3.375 G in DEXT 5% WATER 100 ML IV SCH (12:00)
[2020-12-12 12:04] LABS: HEMOGLOBIN. 5.6 g/dL (14.0-18.0)
[2020-12-12 12:05] LABS: HEMATOCRIT. 17.4 % (42.0-52.0); PLATELET 12 x1000/uL (130-400)
[2020-12-12 12:07] LABS: CHLORIDE 104 mEq/L (98-107)
[2020-12-12 12:19] LABS: CLARITY URINE TURBID (CLEAR); COLOR URINE ORANGE (YELLOW); KETONES URINE TRACE (NEGATIVE); LEUKOCYTE ESTERASE URINE 3+ (NEGATIVE); NITRITE URINE NEGATIVE (NEGATIVE); OCCULT BLOOD URINE 3+ (NEGATIVE); PROTEIN URINE 2+ (NEGATIVE); SPECIFIC GRAVITY URINE 1.011 (1.005-1.030); UROBILINOGEN URINE 0.2 E.U./dL (0.2-1.0)
[2020-12-12 12:24] LABS: INR 1.1; PROTHROMBIN TIME 11.5 sec (9.6-11.0)
[2020-12-12 13:15] LABS: ATYPICAL LYMPHOCYTES 1; NUCLEATED RED BLOOD CELLS 38 /100 WBC
[2020-12-12 13:16] LABS: PLATELET ESTIMATE MARKEDLY DECREASED
[2020-12-12] MEDS ORDERED: MICAFUNGIN 150 MG in SODIUM CHLORIDE 0.9% 100 ML IV SCH (14:00)
[2020-12-12] MEDS ORDERED: PIPERACILLIN/TAZ 3.375G PREMIX 50 ML IV SCH (14:45)
[2020-12-12] MEDS ORDERED: HYDRALAZINE 20MG/ML VIAL IV PRN (14:45)
[2020-12-12] MEDS ORDERED: IPRATROPIUM/ALBUTEROL 0.5-3(2.5)MG/3ML NEB HHN PRN (14:45)
[2020-12-12] MEDS ORDERED: ONDANSETRON HCL 4MG/2ML INJ IV PRN (14:45)
[2020-12-12] MEDS ORDERED: IOHEXOL-350 100 ML BOTTLE ONE (15:16)
[2020-12-12 15:57] LABS: BG BASE EXCESS -12.1 mmol/L (-2.0-2.0); BG CARBOXYHEMOGLOBIN 0.5 % (0.5-1.5); BG DEOXYHEMOGLOBIN 3.7 % (0.0-5.0); BG FRACTION INSPIRED OXYGEN 21; BG HCO3 ACT 12.7 mmol/L (22.0-26.0); BG METHEMOGLOBIN 0.5 % (0.0-1.5); BG OXYGEN SATURATION 96.3 % (92.0-98.5); BG OXYHEMOGLOBIN 95.3 % (94.0-97.0); BG PCO2 25.7 mmHg (35.0-45.0); BG PH 7.313 (7.350-7.450); BG PO2 90.8 mmHg (75.0-100.0); BG TOTAL HEMOGLOBIN 8.6 g/dL (12.0-18.0); BG VENT MODE ROOM AIR
[2020-12-12] MEDS ORDERED: PAMIDRONATE DISODIUM 90 MG in SODIUM CHLORIDE 0.9% 500 ML IV SCH (16:00)
[2020-12-12] MEDS ORDERED: VANCOMYCIN 1250MG in DEXTROSE 5% WATER 250ML IV NR (16:00)
[2020-12-12 16:43] LABS: CREATINE KINASE 2063 IU/L (39-308)
[2020-12-12 17:12] LABS: HEMATOCRIT 21.6 % (42.0-52.0)
[2020-12-12 17:23] LABS: HEMOGLOBIN 6.9 g/dL (14.0-18.0)
[2020-12-12] MEDS ORDERED: PIPERACILLIN/TAZOBACTAM 2.25 G in DEXTROSE 5% WATER 50 ML IV SCH (18:00)
[2020-12-12] MEDS ORDERED: ADENOSINE 3 MG/ML 2ML VIAL IV PRN (18:45)
[2020-12-12] MEDS: DILTIAZEM HCL 30MG TABLET PO SCH ×2 (19:43→22:32)
[2020-12-12] MEDS: SODIUM CHLORIDE 0.9% 1,000 ML IV SCH (19:44)
[2020-12-12 21:14] LABS: BG BASE EXCESS -9.1 mmol/L (-2.0-2.0); BG CARBOXYHEMOGLOBIN 0.4 % (0.5-1.5); BG DEOXYHEMOGLOBIN 3.4 % (0.0-5.0); BG FRACTION INSPIRED OXYGEN 21; BG HCO3 ACT 14.8 mmol/L (22.0-26.0); BG METHEMOGLOBIN 0.6 % (0.0-1.5); BG OXYGEN SATURATION 96.6 % (92.0-98.5); BG OXYHEMOGLOBIN 95.6 % (94.0-97.0); BG PCO2 25.5 mmHg (35.0-45.0); BG PH 7.383 (7.350-7.450); BG PO2 89.4 mmHg (75.0-100.0); BG SAMPLE SITE RIGHT RADIAL; BG VENT MODE ROOM AIR
[2020-12-12] MEDS: MORPHINE SULFATE 2 MG/ML CPJ (NOT FOR IM USE) IV PRN (21:16)
[2020-12-12 23:57] LABS: HEMATOCRIT 31.2 % (42.0-52.0); HEMOGLOBIN 9.7 g/dL (14.0-18.0); MEAN CORPUSCULAR HEMOGLOBIN 26.3 pg (28.0-32.0); MEAN CORPUSCULAR VOLUME 85.1 fL (80.0-94.0); RED BLOOD CELL COUNT 3.67 mill/uL (4.7-6.1); RED CELL DISTRIBUTION WIDTH 19.9 % (11.6-14.6)
[2020-12-13] VITALS (69 sets, daily range): BP systolic 108–202; BP diastolic 58–145
[2020-12-13 00:06] LABS: CREATINE KINASE MB FRACTION 1.6 ng/mL (0.5-3.6)
[2020-12-13 00:12] LABS: PLATELET 46 x1000/uL (130-400)
[2020-12-13] MEDS: PIPERACILLIN/TAZOBACTAM 2.25 G in DEXTROSE 5% WATER 50 ML IV SCH ×4 (01:14→18:12)
[2020-12-13] MEDS: MORPHINE SULFATE 2 MG/ML CPJ (NOT FOR IM USE) IV PRN ×4 (01:38→20:35)
[2020-12-13] MEDS: SODIUM CHLORIDE 0.9% 1,000 ML IV SCH (04:05)
[2020-12-13 05:50] LABS: BASOPHILS % 0.6 % (0.0-2.0); EOSINOPHILS % 1.7 % (0.0-5.0); HEMATOCRIT. 23.3 % (42.0-52.0); HEMOGLOBIN. 7.7 g/dL (14.0-18.0); LYMPHOCYTES % 39.2 % (20.0-50.0); MEAN CORPUSCULAR HEMOGLOBIN 27.6 pg (28.0-32.0); MEAN CORPUSCULAR VOLUME 83.3 fL (80.0-94.0); MEAN PLATELET VOLUME 8.3 fl (7.4-10.4); MONOCYTES % 10.8 % (2.0-8.0); NEUTROPHILS % 47.7 % (40.0-76.0); RED BLOOD CELL COUNT 2.79 mill/uL (4.7-6.1); RED CELL DISTRIBUTION WIDTH 20.6 % (11.6-14.6)
[2020-12-13] MEDS: DILTIAZEM HCL 30MG TABLET PO SCH ×3 (05:55→21:27)
[2020-12-13 06:00] LABS: CHLORIDE 112 mEq/L (98-107)
[2020-12-13 06:07] LABS: PHOSPHORUS 7.6 mg/dL (2.5-4.9)
[2020-12-13 06:08] LABS: LDL CHOLESTEROL 20 mg/dL (5-100)
[2020-12-13 06:09] LABS: AMYLASE 302 IU/L (25-115)
[2020-12-13 06:11] LABS: HDL CHOLESTEROL 22 mg/dL (40-59)
[2020-12-13 06:12] LABS: CREATINE KINASE MB FRACTION 1.3 ng/mL (0.5-3.6); TOTAL IRON BINDING CAPACITY 162 ug/dL (250-450)
[2020-12-13 06:25] LABS: CREATINE KINASE 1360 IU/L (39-308)
[2020-12-13 06:33] LABS: FOLIC ACID (FOLATE) SERUM 11.7 ng/mL (>5.38)
[2020-12-13 07:09] LABS: PLATELET 30 x1000/uL (130-400)
[2020-12-13] MEDS ORDERED: DEXT 5%/0.9% NACL 1,000 ML IV ONE (14:00)
[2020-12-13 16:18] LABS: HEMATOCRIT 21.3 % (42.0-52.0); HEMOGLOBIN 7.1 g/dL (14.0-18.0)
[2020-12-13] MEDS: MICAFUNGIN 150 MG in SODIUM CHLORIDE 0.9% 100 ML IV SCH (18:12)
[2020-12-13] MEDS: LACTULOSE 20G/30ML UDC PO SCH (21:26)
[2020-12-14] VITALS (44 sets, daily range): BP systolic 102–136; BP diastolic 56–91
[2020-12-14] MEDS: PIPERACILLIN/TAZOBACTAM 2.25 G in DEXTROSE 5% WATER 50 ML IV SCH ×3 (00:15→11:57)
[2020-12-14 05:01] LABS: HEMATOCRIT. 29.6 % (42.0-52.0); HEMOGLOBIN. 9.7 g/dL (14.0-18.0); MEAN CORPUSCULAR HEMOGLOBIN 27.9 pg (28.0-32.0); RED BLOOD CELL COUNT 3.49 mill/uL (4.7-6.1); RED CELL DISTRIBUTION WIDTH 19.4 % (11.6-14.6)
[2020-12-14 05:06] LABS: CHLORIDE 117 mEq/L (98-107)
[2020-12-14 05:16] LABS: AMYLASE 169 IU/L (25-115); CREATINE KINASE 764 IU/L (39-308)
[2020-12-14 05:36] LABS: HEPATITIS B SURFACE ANTIGEN NEGATIVE
[2020-12-14] MEDS: DILTIAZEM HCL 30MG TABLET PO SCH ×3 (05:54→21:35)
[2020-12-14 06:06] LABS: HEPATITIS A AB IGM NEGATIVE (NEGATIVE)
[2020-12-14 09:11] LABS: IMMUNOGLOBULIN A 160 mg/dL (61-437); IMMUNOGLOBULIN G 1165 mg/dL (603-1613); IMMUNOGLOBULIN M 32 mg/dL (20-172); VITAMIN D 25-OH 17.1 ng/mL (30.0-100.0)
[2020-12-14] MEDS: LACTULOSE 20G/30ML UDC PO SCH ×2 (10:26→21:35)
[2020-12-14 10:28] LABS: NUCLEATED RED BLOOD CELLS 5 /100 WBC
[2020-12-14 10:29] LABS: PLATELET ESTIMATE DECREASED
[2020-12-14 13:11] LABS: ALBUMIN 2.9 g/dL (2.9-4.4); ALPHA-1-GLOBULIN 0.4 g/dL (0.0-0.4); ALPHA-2-GLOBULIN 0.5 g/dL (0.4-1.0); GLOBULIN TOTAL 2.9 g/dL (2.2-3.9); M-SPIKE Not Observed g/dL (Not Observed); TOTAL PROTEIN SERUM 5.8 g/dL (6.0-8.5)
[2020-12-14] MEDS: CEFEPIME 1,000 MG in DEXTROSE 5% WATER 50 ML IV SCH (14:50)
[2020-12-14 15:38] LABS: HEMOGLOBIN 10.1 g/dL (14.0-18.0)
[2020-12-14] MEDS: LINEZOLID 600 MG PREMIX 300 ML IV SCH (16:14)
[2020-12-14] MEDS: MICAFUNGIN 150 MG in SODIUM CHLORIDE 0.9% 100 ML IV SCH (18:32)
[2020-12-14] MEDS: MORPHINE SULFATE 2 MG/ML CPJ (NOT FOR IM USE) IV PRN (19:42)
[2020-12-14 19:51] LABS: MEAN PLATELET VOLUME 8.8 fl (7.4-10.4); PLATELET 60 x1000/uL (130-400)
[2020-12-15] VITALS (12 sets, daily range): BP systolic 109–133; BP diastolic 63–91
[2020-12-15] MEDS: DIPHENHYDRAMINE 50MG/ML VIAL IV PRN ×2 (01:39→18:06)
[2020-12-15] MEDS: LINEZOLID 600 MG PREMIX 300 ML IV SCH ×2 (03:57→16:29)
[2020-12-15] MEDS: DILTIAZEM HCL 30MG TABLET PO SCH (05:40)
[2020-12-15] MEDS: MORPHINE SULFATE 2 MG/ML CPJ (NOT FOR IM USE) IV PRN ×2 (05:42→21:07)
[2020-12-15 06:31] LABS: HEMATOCRIT. 29.4 % (42.0-52.0); HEMOGLOBIN. 9.7 g/dL (14.0-18.0); MEAN CORPUSCULAR HEMOGLOBIN 27.6 pg (28.0-32.0); MEAN CORPUSCULAR VOLUME 83.6 fL (80.0-94.0); MEAN PLATELET VOLUME 8.8 fl (7.4-10.4); RED BLOOD CELL COUNT 3.52 mill/uL (4.7-6.1); RED CELL DISTRIBUTION WIDTH 20.1 % (11.6-14.6)
[2020-12-15 06:52] LABS: PLATELET 35 x1000/uL (130-400)
[2020-12-15] MEDS: LACTULOSE 20G/30ML UDC PO SCH ×2 (08:48→21:06)
[2020-12-15 11:00] LABS: BG BASE EXCESS -11.8 mmol/L (-2.0-2.0); BG CARBOXYHEMOGLOBIN 0.3 % (0.5-1.5); BG DEOXYHEMOGLOBIN 3.1 % (0.0-5.0); BG FRACTION INSPIRED OXYGEN 21; BG HCO3 ACT 13.1 mmol/L (22.0-26.0); BG METHEMOGLOBIN 0.3 % (0.0-1.5); BG OXYGEN SATURATION 96.9 % (92.0-98.5); BG OXYHEMOGLOBIN 96.3 % (94.0-97.0); BG PCO2 27.3 mmHg (35.0-45.0); BG PH 7.299 (7.350-7.450); BG PO2 93.6 mmHg (75.0-100.0); BG SAMPLE SITE RIGHT BRACHIAL; BG TOTAL HEMOGLOBIN 12.2 g/dL (12.0-18.0); BG VENT MODE ROOM AIR
[2020-12-15 13:06] LABS: VITAMIN D 1-25 DIHYDROXY 8.1 pg/mL (19.9-79.3)
[2020-12-15 13:48] LABS: NUCLEATED RED BLOOD CELLS 6 /100 WBC; PLATELET ESTIMATE MARKEDLY DECREASED
[2020-12-15] MEDS: DILTIAZEM HCL 60MG TABLET PO SCH ×2 (14:44→21:07)
[2020-12-15] MEDS: CEFEPIME 1,000 MG in DEXTROSE 5% WATER 50 ML IV SCH (14:48)
[2020-12-16] VITALS (12 sets, daily range): BP systolic 102–129; BP diastolic 57–93
[2020-12-16] MEDS: LINEZOLID 600 MG PREMIX 300 ML IV SCH ×2 (04:06→15:12)
[2020-12-16 05:40] LABS: HEMATOCRIT. 30.5 % (42.0-52.0); HEMOGLOBIN. 10.2 g/dL (14.0-18.0); MEAN CORPUSCULAR HEMOGLOBIN 28.3 pg (28.0-32.0); MEAN CORPUSCULAR VOLUME 84.6 fL (80.0-94.0); RED CELL DISTRIBUTION WIDTH 20.4 % (11.6-14.6)
[2020-12-16 05:49] LABS: CHLORIDE 109 mEq/L (98-107)
[2020-12-16 05:58] LABS: AMYLASE 94 IU/L (25-115)
[2020-12-16 06:00] LABS: PHOSPHORUS 7.9 mg/dL (2.5-4.9)
[2020-12-16 06:01] LABS: CREATINE KINASE 394 IU/L (39-308)
[2020-12-16] MEDS: DILTIAZEM HCL 60MG TABLET PO SCH ×3 (06:13→21:21)
[2020-12-16 08:06] LABS: MEAN PLATELET VOLUME 8.6 fl (7.4-10.4); PLATELET 21 x1000/uL (130-400)
[2020-12-16 09:09] LABS: NUCLEATED RED BLOOD CELLS 9 /100 WBC; PLATELET ESTIMATE MARKEDLY DECREASED
[2020-12-16] MEDS: LACTULOSE 20G/30ML UDC PO SCH ×2 (09:11→21:20)
[2020-12-16] MEDS: MORPHINE SULFATE 2 MG/ML CPJ (NOT FOR IM USE) IV PRN (09:12)
[2020-12-16] MEDS: DEXTROSE 5% WATER 1,000 ML IV SCH (12:45)
[2020-12-16] MEDS: SEVELAMER CARBONATE 800 MG TABLET PO SCH ×2 (12:46→18:08)
[2020-12-16] MEDS: CEFEPIME 1,000 MG in DEXTROSE 5% WATER 50 ML IV SCH (14:22)
[2020-12-16] MEDS: DIPHENHYDRAMINE 50MG/ML VIAL IV PRN (21:21)
[2020-12-17] VITALS (12 sets, daily range): BP systolic 105–160; BP diastolic 63–101
[2020-12-17] MEDS: DEXTROSE 5% WATER 1,000 ML IV SCH (03:43)
[2020-12-17] MEDS: LINEZOLID 600 MG PREMIX 300 ML IV SCH ×2 (03:43→16:44)
[2020-12-17] MEDS: DILTIAZEM HCL 60MG TABLET PO SCH ×3 (06:10→21:27)
[2020-12-17 07:27] LABS: HEMATOCRIT. 27.5 % (42.0-52.0); HEMOGLOBIN. 9.4 g/dL (14.0-18.0); MEAN CORPUSCULAR HEMOGLOBIN 28.6 pg (28.0-32.0); MEAN CORPUSCULAR VOLUME 83.6 fL (80.0-94.0); MEAN PLATELET VOLUME 9.8 fl (7.4-10.4); RED BLOOD CELL COUNT 3.29 mill/uL (4.7-6.1); RED CELL DISTRIBUTION WIDTH 19.9 % (11.6-14.6)
[2020-12-17 07:39] LABS: PHOSPHORUS 6.7 mg/dL (2.5-4.9)
[2020-12-17 08:00] LABS: PLATELET 15 x1000/uL (130-400)
[2020-12-17] MEDS: SEVELAMER CARBONATE 800 MG TABLET PO SCH ×3 (08:46→17:23)
[2020-12-17] MEDS: LACTULOSE 20G/30ML UDC PO SCH ×2 (08:46→21:26)
[2020-12-17] MEDS ORDERED: SODIUM BICARBONATE 8.4% 1 MEQ/ML 50ML SYR IV NR (09:15)
[2020-12-17] MEDS: MORPHINE SULFATE 2 MG/ML CPJ (NOT FOR IM USE) IV PRN (09:37)
[2020-12-17] MEDS: CITRIC ACID/SODIUM CITRATE SOLN 30ML UDC PO SCH ×3 (09:37→17:23)
[2020-12-17] MEDS: SODIUM BICARBONATE 150 MEQ in DEXTROSE 5% WATER 1,000 ML IV SCH (10:31)
[2020-12-17] MEDS: DIPHENHYDRAMINE 50MG/ML VIAL IV PRN (12:35)
[2020-12-17 13:18] LABS: NUCLEATED RED BLOOD CELLS 3 /100 WBC; PLATELET ESTIMATE MARKEDLY DECREASED
[2020-12-17] MEDS: CEFEPIME 1,000 MG in DEXTROSE 5% WATER 50 ML IV SCH (16:03)
[2020-12-17] MEDS ORDERED: MORPHINE SULFATE 2 MG/ML CPJ (NOT FOR IM USE) IV PRN (17:45)
[2020-12-18] VITALS (12 sets, daily range): BP systolic 112–142; BP diastolic 75–93
[2020-12-18] MEDS: LINEZOLID 600 MG PREMIX 300 ML IV SCH ×2 (04:14→15:30)
[2020-12-18] MEDS: SODIUM BICARBONATE 150 MEQ in DEXTROSE 5% WATER 1,000 ML IV SCH ×2 (04:35→18:41)
[2020-12-18] MEDS: DILTIAZEM HCL 60MG TABLET PO SCH ×3 (06:07→21:32)
[2020-12-18 07:01] LABS: PHOSPHORUS 6.4 mg/dL (2.5-4.9)
[2020-12-18 07:32] LABS: BG FRACTION INSPIRED OXYGEN 21; BG HCO3 ACT 16.7 mmol/L (22.0-26.0); BG METHEMOGLOBIN 0.5 % (0.0-1.5); BG OXYHEMOGLOBIN 97.5 % (94.0-97.0); BG PCO2 27.1 mmHg (35.0-45.0); BG PH 7.408 (7.350-7.450); BG SAMPLE SITE RIGHT RADIAL; BG TOTAL HEMOGLOBIN 8.3 g/dL (12.0-18.0); BG VENT MODE ROOM AIR
[2020-12-18 07:41] LABS: HEMATOCRIT. 24.6 % (42.0-52.0); HEMOGLOBIN. 8.4 g/dL (14.0-18.0); MEAN CORPUSCULAR HEMOGLOBIN 28.2 pg (28.0-32.0); MEAN CORPUSCULAR VOLUME 82.7 fL (80.0-94.0); MEAN PLATELET VOLUME 9.4 fl (7.4-10.4); RED BLOOD CELL COUNT 2.98 mill/uL (4.7-6.1); RED CELL DISTRIBUTION WIDTH 19.6 % (11.6-14.6)
[2020-12-18] MEDS: LACTULOSE 20G/30ML UDC PO SCH ×2 (08:01→21:32)
[2020-12-18] MEDS: CITRIC ACID/SODIUM CITRATE SOLN 30ML UDC PO SCH ×4 (08:01→17:15)
[2020-12-18] MEDS: SEVELAMER CARBONATE 800 MG TABLET PO SCH ×3 (08:01→17:15)
[2020-12-18 13:36] LABS: NUCLEATED RED BLOOD CELLS 10 /100 WBC
[2020-12-18 13:37] LABS: PLATELET ESTIMATE MARKEDLY DECREASED
[2020-12-18 13:39] LABS: PLATELET 25 x1000/uL (130-400)
[2020-12-18] MEDS: CEFEPIME 1,000 MG in DEXTROSE 5% WATER 50 ML IV SCH (13:53)
[2020-12-19] VITALS (11 sets, daily range): BP systolic 113–132; BP diastolic 30–85
[2020-12-19] MEDS: LINEZOLID 600 MG PREMIX 300 ML IV SCH (03:55)
[2020-12-19] MEDS: DILTIAZEM HCL 60MG TABLET PO SCH ×3 (06:21→21:54)
[2020-12-19 07:40] LABS: HEMATOCRIT. 22.9 % (42.0-52.0); HEMOGLOBIN. 7.8 g/dL (14.0-18.0); MEAN CORPUSCULAR HEMOGLOBIN 27.9 pg (28.0-32.0); MEAN CORPUSCULAR VOLUME 82.5 fL (80.0-94.0); MEAN PLATELET VOLUME 8.9 fl (7.4-10.4); RED BLOOD CELL COUNT 2.78 mill/uL (4.7-6.1)
[2020-12-19] MEDS: LACTULOSE 20G/30ML UDC PO SCH ×2 (07:48→21:54)
[2020-12-19] MEDS: SEVELAMER CARBONATE 800 MG TABLET PO SCH ×3 (07:48→16:28)
[2020-12-19] MEDS: CITRIC ACID/SODIUM CITRATE SOLN 30ML UDC PO SCH (07:49)
[2020-12-19 07:57] LABS: PHOSPHORUS 4.9 mg/dL (2.5-4.9)
[2020-12-19 08:00] LABS: PLATELET 15 x1000/uL (130-400)
[2020-12-19] MEDS ORDERED: POTASSIUM CHLORIDE 20MEQ TABLET SR PO NR (08:30)
[2020-12-19] MEDS: SODIUM BICARBONATE 150 MEQ in DEXTROSE 5% WATER 1,000 ML IV SCH (08:55)
[2020-12-19] MEDS: SODIUM BICARBONATE 650 MG TABLET PO SCH ×2 (09:40→16:28)
[2020-12-19] MEDS ORDERED: MAGNESIUM 2 G PREMIX 50 ML IV NR (10:00)
[2020-12-19 13:22] LABS: NUCLEATED RED BLOOD CELLS 3 /100 WBC
[2020-12-19 13:23] LABS: PLATELET ESTIMATE MARKEDLY DECREASED
[2020-12-19] MEDS: CEFEPIME 1,000 MG in DEXTROSE 5% WATER 50 ML IV SCH (15:36)
[2020-12-19 23:11] LABS: HEMATOCRIT 23.2 % (42.0-52.0); HEMOGLOBIN 8.4 g/dL (14.0-18.0)
[2020-12-20] VITALS (12 sets, daily range): BP systolic 103–129; BP diastolic 71–87
[2020-12-20] MEDS: SODIUM BICARBONATE 150 MEQ in DEXTROSE 5% WATER 1,000 ML IV SCH ×2 (00:33→18:45)
[2020-12-20] MEDS: DILTIAZEM HCL 60MG TABLET PO SCH ×3 (05:13→21:13)
[2020-12-20 06:14] LABS: HEMATOCRIT 22.2 % (42.0-52.0); HEMOGLOBIN 7.6 g/dL (14.0-18.0)
[2020-12-20] MEDS: SEVELAMER CARBONATE 800 MG TABLET PO SCH (09:05)
[2020-12-20] MEDS: SODIUM BICARBONATE 650 MG TABLET PO SCH ×2 (09:05→15:45)
[2020-12-20] MEDS: LACTULOSE 20G/30ML UDC PO SCH ×3 (09:05→21:12)
[2020-12-20] MEDS ORDERED: DILT180C66 MT (10:41)
[2020-12-20] MEDS ORDERED: LACT10SO7 PO (10:41)
[2020-12-20] MEDS: CEFEPIME 1,000 MG in DEXTROSE 5% WATER 50 ML IV SCH (14:35)
[2020-12-21] VITALS (7 sets, daily range): BP systolic 103–147; BP diastolic 68–88
[2020-12-21] MEDS: DILTIAZEM HCL 60MG TABLET PO SCH (05:25)
[2020-12-21] MEDS: LACTULOSE 20G/30ML UDC PO SCH (09:00)
[2020-12-21] MEDS: SODIUM BICARBONATE 650 MG TABLET PO SCH (09:39)
== END 2020-12-21 12:47 | disposition hospice, inpatient (51) | DRG 720 ==
LOC: ER 11:13 → CVICU 14:05 → EDBEDREQTM 14:18 → EDBEDREQSVC 14:18 → EDBEDREQ 14:18 → ENRESERV 16:28 → 3WST 12-14 22:16
PROVIDERS: ADMIT Internal Medicine; ATTEND Internal Medicine
PROC: 30233R1 Transfusion of Nonautologous Platelets into Peripheral Vein, Percutaneous Approach (ICD-10-PCS; principal; 2020-12-13)
PROC: 30233N1 Transfusion of Nonautologous Red Blood Cells into Peripheral Vein, Percutaneous Approach (ICD-10-PCS; 2020-12-13)
DX: A41.81 Sepsis due to Enterococcus (principal); K72.00 Acute and subacute hepatic failure without coma; G93.40 Encephalopathy, unspecified; I13.2 Hypertensive heart and chronic kidney disease with heart failure and with stage 5 chronic kidney disease, or end stage renal disease; K85.90 Acute pancreatitis without necrosis or infection, unspecified; B49 Unspecified mycosis; N17.9 Acute kidney failure, unspecified; C79.51 Secondary malignant neoplasm of bone; D69.59 Other secondary thrombocytopenia; E87.2 Acidosis; K92.2 Gastrointestinal hemorrhage, unspecified; C18.9 Malignant neoplasm of colon, unspecified; N18.6 End stage renal disease; N13.6 Pyonephrosis; I16.0 Hypertensive urgency; C61 Malignant neoplasm of prostate; D50.9 Iron deficiency anemia, unspecified; E78.5 Hyperlipidemia, unspecified; E83.52 Hypercalcemia; E88.09 Other disorders of plasma-protein metabolism, not elsewhere classified; F20.9 Schizophrenia, unspecified; F31.9 Bipolar disorder, unspecified; I47.1 Supraventricular tachycardia; J98.11 Atelectasis; K94.01 Colostomy hemorrhage; N40.0 Benign prostatic hyperplasia without lower urinary tract symptoms; D63.8 Anemia in other chronic diseases classified elsewhere; I50.9 Heart failure, unspecified; Z66 Do not resuscitate; Z90.49 Acquired absence of other specified parts of digestive tract; Z88.6 Allergy status to analgesic agent; Z79.899 Other long term (current) drug therapy; Z85.46 Personal history of malignant neoplasm of prostate; Z99.2 Dependence on renal dialysis; B96.5 Pseudomonas (aeruginosa) (mallei) (pseudomallei) as the cause of diseases classified elsewhere; Z16.21 Resistance to vancomycin; I34.0 Nonrheumatic mitral (valve) insufficiency; Z87.448 Personal history of other diseases of urinary system
CPT/HCPCS: 36415; 36600; 71045; 71275; 74174; 76700; 80048; 80053; 80061; 80076; 80202; 81003; 82140; 82150; 82248; 82306; 82330; 82375; 82550; 82553; 82570; 82607; 82652; 82728; 82746; 82784; 82805; 82962; 83540; 83550; 83605; 83735; 83935; 83970; 84100; 84155; 84165; 84300; 84443; 84484; 85014; 85018; 85025; 85027; 85049; 85384; 86334; 86705; 86709; 86803; 86850; 86900; 86920; 86945; 87077; 87186; 87340; 92610; 93005; 93306; 93970; 97162; 97166; 97530; 97535; 99285; C9113; J0153; J0360; J0692; J1200; J2020; J2248; J2270; J2354; J2405; J2430; J2543; J3370; J3475; J3490; J7030; J7040; J7042; J7050; J7060; J7070; P9016; P9034; Q9967

== ENCOUNTER 2021-01-13 13:37 | Emergency (ER) | payer MEDICAID, OTHER ==
[~2021-01-13] VITALS: Ht 177.8 cm; Wt 69.0 kg
[~2021-01-13 13:37] MED LIST changes: -BICA50TA7 PO; +CEPH500C2 MT; +DILT180C66 MT; +LACT10SO7 PO; -LINE600T14 PO; -NIFE-33 PO; +OLAN5TAB3 MT
[2021-01-13] MEDS ORDERED: LACTATED RINGERS 1,000 ML IV SCH (14:15)
[2021-01-13] MEDS ORDERED: MORPHINE SULFATE 2 MG/ML CPJ (NOT FOR IM USE) IV ONE (14:45)
[2021-01-13] MEDS ORDERED: CEPH500C2 MT (15:12)
[2021-01-13 18:54] VITALS: BP 116/73
== END 2021-01-13 18:56 | disposition home or self-care (01) ==
LOC: ER 13:41
DX: I12.0 Hypertensive chronic kidney disease with stage 5 chronic kidney disease or end stage renal disease (principal); N18.6 End stage renal disease; Z99.2 Dependence on renal dialysis; I25.2 Old myocardial infarction; C80.1 Malignant (primary) neoplasm, unspecified; Z51.5 Encounter for palliative care; Z79.899 Other long term (current) drug therapy; Z88.6 Allergy status to analgesic agent
CPT/HCPCS: 82962; 93005; 96374; 99285; J2270; Z7610